=== PATIENT | female | born 1970 | race Caucasian/White ===

== ENCOUNTER → 2016-12-23 | Outpatient (CLI) | payer BC ==
[~2016-12-23] MED LIST: AMITIZA 8MCG8 MCG PO; ARMOUR THYROID120 MG PO; FELDENE20 MG PO; LINZESS145CAP PO; MYRBETR25MG PO; TIROSINT137 MC1 PO; ULTRAM 50MG TAB50 MG PO
== END ==
LOC: MC.RAD 15:40
DX: Z12.31 Encounter for screening mammogram for malignant neoplasm of breast (principal)

== ENCOUNTER 2017-01-19 21:41 | Observation (INO) | payer BC ==
[~2017-01-19] VITALS: Ht 157.5 cm; Wt 72.7 kg
[~2017-01-19 21:41] MED LIST changes: -LINZESS145CAP PO; -TIROSINT137 MC1 PO
[2017-01-19 23:04] LABS: BASO # 0.1 (0.0-0.2); BASO % 0.3 % (0.0-2.0); EOS % 0.2 % (0-4.0); GRAN # 16.4 (1.4-6.5); GRAN % 87.2 % (42.2-75.2); HEMATOCRIT 46.3 % (37.0-47.0); HEMOGLOBIN 16.4 g/dl (12.5-16.0); LYMPH # 1.5 (1.2-3.4); LYMPH % 8.2 % (20.0-51.0); MEAN CELL VOLUME 86 fl (80.0-100.0); MEAN CORPUSCULAR HEMOGLOBIN 31 pg (27.0-31.0); MEAN CORPUSCULAR HGB CONC 35 g/dl (33.0-37.0); MEAN PLATELET VOLUME 9.9 fl (7.4-10.4); MONO # 0.7 (0.1-0.6); MONO % 3.7 % (1.7-9.3); PLATELET COUNT 264 K/mm3 (130-400); RED BLOOD COUNT 5.36 M/mm3 (4.10-5.30); REDCELL DISTRIBUTION WIDTH-CV 11.6 % (11.5-14.5); WHITE BLOOD COUNT 18.8 K/mm3 (4.8-10.8)
[2017-01-19] MEDS ORDERED: LINZESS145CAP PO (23:06)
[2017-01-19] MEDS ORDERED: TIROSINT137 MC1 PO (23:06)
[2017-01-19 23:14] LABS: ADJUSTED CALCIUM 9.3 mg/dL (8.4-10.2); ALANINE AMINOTRANSFERASE 46 U/L (9-52); ALBUMIN 4.7 gm/dL (3.5-5.0); ALKALINE PHOSPHATASE 83 U/L (50-136); ANION GAP 15 mmol/L (7-16); BILIRUBIN,TOTAL 0.9 mg/dL (0.0-1.0); BLOOD UREA NITROGEN 18 mg/dL (7-17); CALCIUM 9.9 mg/dL (8.4-10.2); CARBON DIOXIDE 23 mmol/L (22-30); CHLORIDE 101 mmol/L (98-107); CREATININE, serum 0.63 mg/dL (0.52-1.25); GLUCOSE 154 mg/dL (74-106); LIPASE 67 U/L (23-300); SODIUM 138 mmol/L (137-145); TOTAL PROTEIN 8.6 gm/dL (6.4-8.2)
[2017-01-19 23:25] LABS: PH 5 (5-8); SQUAMOUS EPITHELIAL 0-2 /hpf; URINE APPEARANCE Clear; URINE BACTERIA None Seen /hpf; URINE BILIRUBIN Negative (NEGATIVE); URINE BLOOD Negative (NEGATIVE); URINE COLOR Yellow; URINE GLUCOSE Negative (NEGATIVE); URINE KETONE 1+ (NEGATIVE); URINE RBC 0-2 /hpf; URINE UROBILINOGEN Negative (NEGATIVE); URINE WBC 0-2 /hpf
[2017-01-19 23:27] LABS: TROPONIN-I < 0.012 ng/mL (0.000-0.034)
[2017-01-20 02:56] VITALS: BP 127/71; PULSE 90; TEMP 97.5
[2017-01-20 07:52] LABS: BASO % 0.1 % (0.0-2.0); GRAN # 8.7 (1.4-6.5); HEMATOCRIT 39.9 % (37.0-47.0); LYMPH # 0.9 (1.2-3.4); LYMPH % 8.9 % (20.0-51.0); MEAN CELL VOLUME 86 fl (80.0-100.0); MEAN CORPUSCULAR HEMOGLOBIN 31 pg (27.0-31.0); MEAN CORPUSCULAR HGB CONC 36 g/dl (33.0-37.0); MEAN PLATELET VOLUME 10.1 fl (7.4-10.4); MONO # 0.1 (0.1-0.6); MONO % 0.6 % (1.7-9.3); PLATELET COUNT 241 K/mm3 (130-400); RED BLOOD COUNT 4.64 M/mm3 (4.10-5.30); REDCELL DISTRIBUTION WIDTH-CV 11.6 % (11.5-14.5); WHITE BLOOD COUNT 9.6 K/mm3 (4.8-10.8)
[2017-01-20 08:00] LABS: HEMOGLOBIN 14.4 g/dl (12.5-16.0)
[2017-01-20 08:18] VITALS: BP 120/70; PULSE 86; TEMP 98
== END 2017-01-20 09:30 | disposition home or self-care (01) ==
LOC: COL.ER 21:41 → OB 01-20 01:26
PROVIDERS: Family Medicine; Obstetrics & Gynecology
DX: R10.13 Epigastric pain (principal); L50.9 Urticaria, unspecified; R11.2 Nausea with vomiting, unspecified; R19.7 Diarrhea, unspecified
CPT/HCPCS: G0378; J1170; J1200; J2405; J2930; J7030; J7120; Q9967

== ENCOUNTER 2017-08-02 00:17 | Observation (INO) | payer BC ==
[2017-08-02] VITALS (7 sets, daily range): BP systolic 117–159; BP diastolic 73–84; PULSE 72–81; TEMP 97.8–98.7
[~2017-08-02] VITALS: Ht 154.9 cm; Wt 83.0 kg
[~2017-08-02 00:17] MED LIST changes: +LINZESS145CAP PO; +TIROSINT137 MC1 PO
[2017-08-02 01:31] LABS: BASO % 0.6 % (0.0-2.0); EOS # 0.1 (0.0-0.7); EOS % 1.6 % (0-4.0); GRAN # 2.6 (1.4-6.5); GRAN % 38.3 % (42.2-75.2); HEMATOCRIT 38.8 % (37.0-47.0); HEMOGLOBIN 13.9 g/dl (12.5-16.0); LYMPH # 3.4 (1.2-3.4); MEAN CELL VOLUME 87 fl (80.0-100.0); MEAN CORPUSCULAR HEMOGLOBIN 31 pg (27.0-31.0); MEAN CORPUSCULAR HGB CONC 36 g/dl (33.0-37.0); MEAN PLATELET VOLUME 10.1 fl (7.4-10.4); MONO # 0.7 (0.1-0.6); MONO % 10.1 % (1.7-9.3); PLATELET COUNT 213 K/mm3 (130-400); RED BLOOD COUNT 4.48 M/mm3 (4.10-5.30); REDCELL DISTRIBUTION WIDTH-CV 11.6 % (11.5-14.5); WHITE BLOOD COUNT 6.9 K/mm3 (4.8-10.8)
[2017-08-02 01:46] LABS: ADJUSTED CALCIUM 8.8 mg/dL (8.4-10.2); ALANINE AMINOTRANSFERASE 67 U/L (9-52); ALBUMIN 4.6 gm/dL (3.5-5.0); ALKALINE PHOSPHATASE 65 U/L (50-136); ANION GAP 12 mmol/L (7-16); BILIRUBIN,TOTAL 0.8 mg/dL (0.0-1.0); BLOOD UREA NITROGEN 14 mg/dL (7-17); CALCIUM 9.3 mg/dL (8.4-10.2); CARBON DIOXIDE 22 mmol/L (22-30); CHLORIDE 107 mmol/L (98-107); CREATINE KINASE 59 U/L (30-135); CREATININE, serum 0.58 mg/dL (0.52-1.25); GLUCOSE 112 mg/dL (74-106); LIPASE 121 U/L (23-300); POTASSIUM 3.8 mmol/L (3.4-5.0); SODIUM 140 mmol/L (137-145); TOTAL PROTEIN 7.8 gm/dL (6.4-8.2)
[2017-08-02 01:58] LABS: B-TYPE NATRIURETIC PEPTIDE 12 pg/mL (0-125)
[2017-08-02 02:08] LABS: TROPONIN-I < 0.012 ng/mL (0.000-0.034)
[2017-08-02] MEDS ORDERED: TIROSINT100 MC1 PO (03:47)
[2017-08-02 07:42] LABS: CHOLESTEROL 179 mg/dL (120-200); HDL CHOLESTEROL 33 mg/dL; LDL CHOLESTEROL 117 mg/dL; MAGNESIUM 1.7 mg/dL (1.6-2.3); TRIGLYCERIDE 147 mg/dL
[2017-08-02 16:39] LABS: AMPHETAMINE URINE NEGATIVE; BARBITURATES URINE NEGATIVE; BENZODIAZEPINES URINE POSITIVE; BUPRENORPHINE URINE NEGATIVE; METHADONE URINE NEGATIVE; OPIATES URINE POSITIVE; OXYCODONE URINE NEGATIVE; PHENCYCLIDINE URINE NEGATIVE; PROPOXYPHENE URINE NEGATIVE; THC CANNABINOIDS URINE NEGATIVE
[2017-08-02 19:03] LABS: PH 5 (5-8); URINE APPEARANCE Turbid; URINE BACTERIA Rare /hpf; URINE BILIRUBIN Negative (NEGATIVE); URINE BLOOD Negative (NEGATIVE); URINE COLOR Amber; URINE GLUCOSE Negative (NEGATIVE); URINE KETONE Negative (NEGATIVE); URINE RBC 0-2 /hpf; URINE UROBILINOGEN Negative (NEGATIVE); URINE WBC None Seen /hpf
[2017-08-03 04:11] VITALS: BP 133/67; PULSE 75; TEMP 98.7
[2017-08-03 08:47] VITALS: BP 121/63; PULSE 68; TEMP 97.3
[2017-08-03 11:36] VITALS: BP 111/79; PULSE 76; TEMP 98.2
[2017-08-03] MEDS ORDERED: ZESTRIL 5MG5 MG PO (12:54)
[2017-08-03] MEDS ORDERED: PRAVACHOL 20MG20 MG PO (13:01)
[2017-08-03] MEDS ORDERED: ASPIRIN 81M81 MG/TA2 PO (13:02)
== END 2017-08-03 14:30 | disposition home or self-care (01) ==
LOC: COL.ER 00:17 → MEDICAL 02:40
PROVIDERS: Emergency Medicine; Internal Medicine
DX: R07.89 Other chest pain (principal); I10 Essential (primary) hypertension; R51 Headache; R42 Dizziness and giddiness; E78.5 Hyperlipidemia, unspecified; G47.30 Sleep apnea, unspecified; E03.9 Hypothyroidism, unspecified; K58.9 Irritable bowel syndrome, unspecified; Z90.49 Acquired absence of other specified parts of digestive tract; Z90.710 Acquired absence of both cervix and uterus; Z82.49 Family history of ischemic heart disease and other diseases of the circulatory system; E66.9 Obesity, unspecified; Z68.33 Body mass index [BMI] 33.0-33.9, adult
CPT/HCPCS: G0378; J1650; J2060; J2270; J7030

== ENCOUNTER → 2017-09-15 | Outpatient (CLI) | payer BC ==
[~2017-09-15] MED LIST changes: +ASPIRIN 81M81 MG/TA2 PO; +PRAVACHOL 20MG20 MG PO; +TIROSINT100 MC1 PO; +ZESTRIL 5MG5 MG PO
== END ==
LOC: MHCPAIN 10:06
DX: G89.29 Other chronic pain (principal); M53.3 Sacrococcygeal disorders, not elsewhere classified; Z79.82 Long term (current) use of aspirin
CPT/HCPCS: G0463

== ENCOUNTER → 2017-09-24 | Outpatient (CLI) | payer BC | LOC: MHCPAIN 14:28 | DX: M53.3 Sacrococcygeal disorders, not elsewhere classified (principal) | CPT/HCPCS: J1040; Q9967 ==

== ENCOUNTER → 2017-10-16 | Outpatient (CLI) | payer BC | LOC: MHCPAIN 08:38 | DX: G89.29 Other chronic pain (principal); M53.3 Sacrococcygeal disorders, not elsewhere classified | CPT/HCPCS: G0463 ==

== ENCOUNTER 2017-11-28 16:00 | Emergency (ER) | payer BC ==
[~2017-11-28] VITALS: Ht 157.5 cm; Wt 72.7 kg
[2017-11-28 16:06] VITALS: TEMP 99
[2017-11-28 16:53] LABS: INFLUENZA A NEGATIVE; INFLUENZA B NEGATIVE
[2017-11-28 16:59] LABS: HEMOGLOBIN 13.7 g/dl (12.5-16.0); MEAN CELL VOLUME 88 fl (80.0-100.0); MEAN CORPUSCULAR HEMOGLOBIN 32 pg (27.0-31.0); MEAN CORPUSCULAR HGB CONC 36 g/dl (33.0-37.0); MEAN PLATELET VOLUME 10.1 fl (7.4-10.4); PLATELET COUNT 169 K/mm3 (130-400); RED BLOOD COUNT 4.34 M/mm3 (4.10-5.30); REDCELL DISTRIBUTION WIDTH-CV 11.9 % (11.5-14.5)
[2017-11-28 17:05] LABS: ALBUMIN 4.4 gm/dL (3.5-5.0); BILIRUBIN,TOTAL 0.4 mg/dL (0.0-1.0); CALCIUM 9.4 mg/dL (8.4-10.2); CREATININE, serum 0.63 mg/dL (0.52-1.25); POTASSIUM 3.2 mmol/L (3.4-5.0); TOTAL PROTEIN 7.6 gm/dL (6.4-8.2)
[2017-11-28 17:35] LABS: BAND 6 % (0-10); LYMPHOCYTE 37 % (20.0-51.0); NEUTROPHILS 49 % (42.0-75.2); PLATELET ESTIMATE NORMAL (NORMAL)
[2017-11-28 18:15] VITALS: BP 173/68; PULSE 78
== END 2017-11-28 18:18 | disposition home or self-care (01) ==
LOC: COL.ER 16:00
PROVIDERS: Family Medicine
DX: J18.9 Pneumonia, unspecified organism (principal); E86.0 Dehydration; I10 Essential (primary) hypertension; Z90.49 Acquired absence of other specified parts of digestive tract; Z79.82 Long term (current) use of aspirin
CPT/HCPCS: J0696; J2550; J7030

== ENCOUNTER → 2017-12-24 | Outpatient (CLI) | payer BC ==
[~2017-12-24] MED LIST changes: +BLOOD PRESSURE
== END ==
LOC: MC.RAD 09:00
DX: Z12.31 Encounter for screening mammogram for malignant neoplasm of breast (principal)

== ENCOUNTER → 2018-06-22 | Outpatient (CLI) | payer BC, MEDICAID | LOC: MHCPAIN 15:34 | DX: G89.29 Other chronic pain (principal); M47.817 Spondylosis without myelopathy or radiculopathy, lumbosacral region; M53.3 Sacrococcygeal disorders, not elsewhere classified | CPT/HCPCS: G0463 ==

== ENCOUNTER → 2018-07-08 | Outpatient (CLI) | payer BC, MEDICAID | LOC: MHCPAIN 14:35 | DX: M53.3 Sacrococcygeal disorders, not elsewhere classified (principal) | CPT/HCPCS: J1040; Q9967 ==

== ENCOUNTER → 2018-12-30 | Outpatient (CLI) | payer BC | LOC: MC.RAD 16:07 | DX: Z12.31 Encounter for screening mammogram for malignant neoplasm of breast (principal) ==

== ENCOUNTER 2019-03-19 15:04 | Emergency (ER) | payer BC ==
[~2019-03-19] VITALS: Ht 157.5 cm; Wt 70.5 kg
[2019-03-19 15:12] VITALS: BP 111/67; TEMP 99.1
[2019-03-19] MEDS ORDERED: PREDNISONE20 MG PO (16:00)
[2019-03-19] MEDS ORDERED: BENICAR 20MG TA20 MG PO (16:12)
[2019-03-19 17:26] VITALS: PULSE 86
== END 2019-03-19 17:27 | disposition home or self-care (01) ==
LOC: COL.ER 15:04
DX: T78.40XA Allergy, unspecified, initial encounter (principal); I10 Essential (primary) hypertension; Z79.82 Long term (current) use of aspirin
CPT/HCPCS: J1200; J2930; J7030

== ENCOUNTER → 2019-07-13 | Outpatient (CLI) | payer BC ==
[~2019-07-13] MED LIST changes: +BENICAR 20MG TA20 MG PO; +PREDNISONE20 MG PO
== END ==
LOC: MHCPAIN 15:22
DX: G89.29 Other chronic pain (principal); M47.817 Spondylosis without myelopathy or radiculopathy, lumbosacral region; M53.3 Sacrococcygeal disorders, not elsewhere classified
CPT/HCPCS: G0463

== ENCOUNTER → 2019-07-25 | Outpatient (CLI) | payer BC | LOC: MHCPAIN 13:29 | DX: M47.817 Spondylosis without myelopathy or radiculopathy, lumbosacral region (principal); M54.16 Radiculopathy, lumbar region; M53.3 Sacrococcygeal disorders, not elsewhere classified | CPT/HCPCS: G0260; J1040; Q9967 ==

== ENCOUNTER → 2020-01-04 | Outpatient (CLI) | payer BC | LOC: MC.RAD 17:00 | DX: Z12.31 Encounter for screening mammogram for malignant neoplasm of breast (principal) ==

== ENCOUNTER → 2021-01-10 | Outpatient (CLI) | payer BC | LOC: MC.RAD | DX: Z12.31 Encounter for screening mammogram for malignant neoplasm of breast (principal) ==

== ENCOUNTER → 2021-10-08 | Outpatient (CLI) | payer BC | LOC: MHCPAIN 08:03 | DX: M53.3 Sacrococcygeal disorders, not elsewhere classified (principal); G89.29 Other chronic pain | CPT/HCPCS: G0463 ==

== ENCOUNTER → 2021-10-15 | Outpatient (CLI) | payer BC | LOC: MHCPAIN 14:44 | DX: M53.3 Sacrococcygeal disorders, not elsewhere classified (principal); G89.29 Other chronic pain | CPT/HCPCS: G0260; J1040; Q9967 ==

== ENCOUNTER → 2022-02-18 | Outpatient (CLI) | payer BC | LOC: MC.RAD 16:45 | DX: Z12.31 Encounter for screening mammogram for malignant neoplasm of breast (principal) ==

== ENCOUNTER → 2023-04-23 | Outpatient (CLI) | payer BC | LOC: MC.RAD 13:00 | DX: Z12.31 Encounter for screening mammogram for malignant neoplasm of breast (principal) ==

== ENCOUNTER → 2024-06-15 | Outpatient (CLI) | payer BC | LOC: MC.RAD 14:00 | DX: Z12.31 Encounter for screening mammogram for malignant neoplasm of breast (principal); R92.1 Mammographic calcification found on diagnostic imaging of breast ==

== ENCOUNTER 2024-06-27 12:41 | Day surgery (SDC) | payer BC ==
[~2024-06-27] VITALS: Ht 154.9 cm; Wt 58.3 kg
[~2024-06-27 12:41] MED LIST changes: +LR 1,000 ML IV SCH
[2024-06-27] MEDS ORDERED: MOUNJARO5 MG/0.5 M SQ (13:41)
[2024-06-27] MEDS ORDERED: CYMBALTA 30MG30 MG PO (13:42)
[2024-06-27] MEDS ORDERED: DIOVAN 80MG80 MG PO (13:42)
[2024-06-27] MEDS ORDERED: PRAVACHOL 20MG20 MG PO (13:42)
[2024-06-27] MEDS ORDERED: DOCUSATE PO (13:43)
[2024-06-27] MEDS ORDERED: ESTRACE 1MG1 MG/TAB PO (13:43)
[2024-06-27] MEDS ORDERED: METFORMIN PO (13:43)
[2024-06-27] MEDS ORDERED: PROBIOTIC BLEN1 EACH PO (13:44)
[2024-06-27] MEDS ORDERED: [UNRECOGNIZED DRUG - OTHER] PO (13:44)
[2024-06-27] MEDS ORDERED: [UNRECOGNIZED DRUG - OTHER] PO (13:45)
[2024-06-27 13:50] VITALS: BP 132/86; PULSE 82; TEMP 97.8
[2024-06-27] MEDS ORDERED: Lidocaine PF 2% (20 MG/ML) 5 ML VIAL ONE (14:27)
[2024-06-27 14:30] VITALS: BP 122/73; PULSE 79
[2024-06-27 14:45] VITALS: BP 136/81; PULSE 80
[2024-06-27 15:00] VITALS: BP 134/81; PULSE 80
[2024-06-27] MEDS ORDERED: Acetaminophen 500 MG TAB PO ONE (15:00)
--- NOTE | 2024-06-27 17:01 | NUR ---
1430 PATIENT RETURNS [place] [facility] [place] [facility] [place]ART. PT AWAKE AND ALERT. RESPIRATIONS UNLABORED. AMBULATED TO RECLINER CHAIR WITH 2:1 SBA. PT DENIES NAUSEA OR ABDOMINAL PAIN. HOOKED UP TO MONITOR AND VS OBTAINED. CALL LIGHT AT SIDE AND PRESENT. 1435 PATIENT TOLERATING WATER AND MAURO CRACKERS WITHOUT NAUSEA OR DIFFICULTY SWALLOWING. 1445 DR. DYE IN ROOM SPEAKING WITH PATIENT. 1455 D/C INSTRUCTIONS REVIEWED WITH PATIENT. PT VERBALIZED UNDERSTANDING AND A COPY OF INSTRUCTIONS PROVIDED IN D/C FOLDER. 1505 PATIENT DRESSES SELF. 1515 PATIENT DISCHARGED FROM UNIT VIA W/C TO A PERSONAL VEHICLE. PT LEFT HOSPITAL IN STABLE CONDITION.
== END 2024-06-27 15:15 | disposition home or self-care (01) ==
LOC: SDCO 12:41
DX: K44.9 Diaphragmatic hernia without obstruction or gangrene (principal); K29.30 Chronic superficial gastritis without bleeding
CPT/HCPCS: J2704; J7120